=== PATIENT | female | born 1960 | race Caucasian/White ===

== ENCOUNTER 2016-10-20 19:45 | Emergency (ER) | payer OTHER ==
[~2016-10-20] VITALS: Ht 170.2 cm; Wt 95.0 kg
[2016-10-20 19:50] VITALS: BP 109/75; PULSE 98; RESP 16; O2SAT 95
--- NOTE | 2016-10-20 21:09 | ED.REPORT ---
HPI-Overdose/Alcohol Toxicity Date of Service Oct 20, 2016 ED Provider: Jay Banegas MD Pt is a 56 y/o female w/ a hx of alcohol abuse presenting to the ED due to alcohol withdrawal and medical clearance to go to a withdrawal facility. Her last alcoholic beverage was earlier today and she states she is currently withdrawing but not severely. She c/o associated nausea, mild craving. She denies any illicit drug use, vomiting, abdominal pain, tremor, confusion. Nursing Notes Stated Complaint: ALCOHOL WITHDRAWL/SENT FROM [facility]IS [facility] Chief Complaint: Substance Abuse Nursing Notes Reviewed: Yes Allergies: Coded Allergies: No Known Allergies (Unverified , 10/20/16) General Time Seen by Provider: 21:09 Chief Complaint Intoxicated, alcohol Hx Obtained From: Patient Arrived By: Walk-in Onset Occurred: 5 - 8 hours ago Symptom Duration: Since onset Severity: Current: No pain currently Severity: Maximum: No pain Recent Healthcare: Previous diagnosis Similar Sx Previous: Yes Past Medical History Past Medical History Hypomagnesemia Fatty liver alcohol abuse Past Surgical History None reported Smoking History Unknown if Ever Smoker Social History Alcohol Use: >5 per day Drug Use: Denies drug use Ambulatory Status Independent Review of Systems Constitutional: Denies: Chills, Fever GI: Reports: Nausea, Denies: Abdominal pain, Vomiting Neurologic: Denies: Confusion, Seizure, Shaking Psychiatric: Reports: Anxiety, Denies: Hallucinations, auditory, Hallucinations, visual Complete sys rev & neg: except as marked. Physical Exam Initial Vital Signs Vital Signs (First) Date Time Temp Pulse Resp B/P Pulse Ox O2 Delivery O2 Flow Rate FiO2 10/20/16 19:50 36.2 98 16 109/75 95 10/21/16 01:25 Room Air Initial VS: Reviewed, Vital signs normal Head / Eyes: Atraumatic, Normocephalic, PERRL ENT: Mucous membranes moist, Conjunctiva normal, No scleral icterus Neck: Supple, Full range of motion Extremities: Vascular intact, Neuro intact, No swelling Skin: Warm, Dry, No cyanosis General/Constitutional: Awake, Alert, No acute distress, Cooperative, Not toxic appearing Appearance / Presentation: Positive: Obese Smells of alcohol Respiratory / Chest: Breath sounds NL, Breath sounds = bilat, No respiratory distress, No rales, No rhonchi, No wheezing, No retractions, No stridor Cardiovascular: Heart rate NL, Regular rhythm, Heart sounds NL, No gallop, No murmurs, No rubs Abdomen: Atraumatic, Soft, Non-tender, No guarding, No rebound, No distention, No palpable mass Organomegaly / Mass / Hernia: Negative: Hepatomegaly Neurologic: Oriented X3, Speech NL, No motor deficits, No sensory deficits Psychiatric: Affect NL, Mood NL, No hallucinations, Judgment/insight NL Interpretation & Diagnostics Lab Results Interpretation Result Diagram: 10/20/16212910/20/162129 Test 10/20/16 21:30 10/20/16 23:00 White Blood Count 5.6th/mm3 (3.8-10.1) Red Blood Count 3.55mil/mm3 (3.90-5.20) Hemoglobin 12.8g/dL (12.0-15.6) Hematocrit 37.6% (35.0-46.0) Mean Corpuscular Volume 105.9fL (81-100) Mean Corpuscular Hemoglobin 36.1pg (27.0-35.0) Mean Corpuscular Hemoglobin Concent 34.0% (32.0-37.0) Red Cell Distribution Width 13.0% (12.3-15.4) Platelet Count 269bil/L (150-400) Neutrophils (%) (Auto) 47.4% (40-74) Lymphocytes (%) (Auto) 40.6% (14-46) Monocytes (%) (Auto) 10.0% (4-12) Eosinophils (%) (Auto) 1.1% (0-5) Basophils (%) (Auto) 0.7% (0-3) Prothrombin Time 10.0sec (8.1-12.5) Prothromb Time International Ratio 0.94ratio Sodium Level 133mEq/L (134-144) Potassium Level 4.4mEq/L (3.5-5.2) Chloride Level 93mEq/L (97-108) Carbon Dioxide Level 23mmol/L (18-29) Blood Urea Nitrogen 18mg/dL (6-24) Creatinine 1.25mg/dL (0.57-1.00) Estimat Glomerular Filtration Rate 64mL/min (>59) Glucose Level 97mg/dL (60-99) Calcium Level 10.5mg/dL (8.5-10.1) Phosphorus Level 4.7mg/dL (2.5-4.9) Magnesium Level 1.9mg/dL (1.6-2.6) Total Bilirubin 0.3mg/dL (0.0-1.2) Aspartate Amino Transf (AST/SGOT) 57U/L (0-50) Alanine Aminotransferase (ALT/SGPT) 62U/L (0-32) Alkaline Phosphatase 64U/L (25-150) Total Protein 7.9g/dL (6.4-8.4) Albumin 4.1g/dL (3.4-5.0) Hold Bunch Top Tube Received (Received) Hold Urine Received (Received) Lab values outside NL range: no clinical significance. Lab Results Interpretation: Mild alcohol hepatitis Re-Eval/Medical Decision Med Decision/Clinical Course 56-year-old female with chronic alcoholism who presents for medical clearance for [facility]. She has mild transaminitis. She was given a banana bag and Ativan for withdrawal symptoms. She will be discharged to [facility] with a prepack of Ativan taper. Re-Evaluation/Progress : Time of Eval: 22:40 Re-Evaluation/Progress Note: Informed pt that she is medically clear. Will set up transport back to Crisis. F/U instructions and RTER warnings given. All questions addressed. Counseled Regarding: Diagnosis, Need for follow-up, When/why to return to ED Discharge & Departure Impression: Primary Impression: Alcohol withdrawal Complication of substance-induced condition: uncomplicated Qualified Code: F10.230 - Alcohol dependence with withdrawal, uncomplicated Additional Impression: Alcohol abuse )( Condition at Discharge: No danger to self, No danger to others, No suicidal ideation, No homicidal ideation, Clear for alcohol rehab Disposition: Home (To alcohol facility) Discharge Condition All VS Reviewed: Yes Condition: Stable Patient Instructions: Alcohol Withdrawal (ED) Additional Instructions: Go directly to [facility]. Lorazepam and ondansetron are provided. Referrals: Judy Cordon (PCP) Roxane Attestation Portions of this note were transcribed by Cooper May. I, Dr. Banegas personally performed the history, physical exam and medical decision-making; I reviewed and confirmed the accuracy of the information in the transcribed note. Signed by Roxane Rasheed, 10/20/162114 copies to: Judy Cordon Howard L MD Oct 20, 2016 21:09 COOPER MAY Oct 20, 2016 21:16
[2016-10-20] MEDS ORDERED: Ondansetron 2 mg/mL 2 mL Inj IVPUSH PRN (21:15)
[2016-10-20] MEDS ORDERED: Thiamine Inj 100 MG, Folic Acid Inj 1 MG, Magnesium Sulfate 50% Inj 2 GM, Multivitamins... IV ONE ×5 (21:15)
[2016-10-20] MEDS ORDERED: _LORazepam 2 MG Tablet PO SCH (21:20)
[2016-10-20 21:43] LABS: BASOPHILS % (AUTO) 0.7 % (0-3); EOSINOPHILS % (AUTO) 1.1 % (0-5); Mean Corpuscular Hemoglobin 36.1 pg (27.0-35.0); Mean Corpuscular Volume 105.9 fL (81-100); NEUTROPHILS % (AUTO) 47.4 % (40-74); Platelet Count 269 bil/L (150-400)
[2016-10-20 22:06] LABS: INR 0.94 ratio
[2016-10-20 22:10] LABS: Magnesium 1.9 mg/dL (1.6-2.6); Phosphorus 4.7 mg/dL (2.5-4.9)
[2016-10-21] MEDS ORDERED: _Ondansetron ODT 4 mg Tablet PO PRN (00:25)
[2016-10-21 01:25] VITALS: BP 117/78; PULSE 102; RESP 18; O2SAT 92
== END 2016-10-21 01:25 | disposition home or self-care (01) ==
LOC: SED 19:45
DX: F10.230 Alcohol dependence with withdrawal, uncomplicated (principal); R11.0 Nausea
CPT/HCPCS: 36415; 80053; 82075; 83735; 84100; 85025; 85610; 96365; 96366; 96375; 99284; J2060; J2405; J3475; J7030